=== PATIENT | female | born 1990 | race Caucasian/White ===

== ENCOUNTER 2018-08-25 19:18 | Emergency (ER) | payer BC ==
[2018-08-25] MEDS ORDERED: KETOROLAC 30 MG/ML INJ ONE (20:47)
[2018-08-25 20:50] LABS: Urine Blood 2+ (NEG); Urine Glucose NEGATIVE (NEG); Urine Specific Gravity >1.030 (1.005-1.030)
[2018-08-25 20:51] LABS: Urine Protein 1+ (NEG)
[2018-08-25 21:36] LABS: Calcium Oxalate Crystals- Ur FEW (NONE SEEN); Urine Bacteria <20 /HPF (<20); Urine Culture Reflex Order NOT NEEDED; Urine Mucus HEAVY /HPF (NONE SEEN); Urine RBC <5 /HPF (NONE SEEN)
--- NOTE | 2018-08-25 23:29 | EDPHYS ---
Physician Documentation [facility] Name: Dee Giang Age: 28 yrs Sex: Female : 1990 Arrival Date: 08/25/2018 Time: 19:21 Bed 16 Private MD: Phuc Lainez R ED Physician Ever Coronado HPI: 08/25 23:25 This 28 yrs old Female presents to ER via Ambulatory with complaints of Back gs Pain. 23:25 The patient presents with pain that is acute. The symptoms are located in the thoracic gs area and lumbar area. Onset: The symptoms/episode began/occurred today. arms and legs. Associated signs and symptoms: Pertinent positives: tingling, Pertinent negatives: abdominal pain, chest pain, constipation, headache, incontinence, weakness. Severity of symptoms: At their worst the symptoms were moderate, in the emergency department the symptoms are unchanged. The patient has experienced similar episodes in the past, a few times. 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 - Social history:: Smoking status: Patient/guardian denies using tobacco, Patient uses alcohol, occasionally. Patient/guardian denies using street drugs. - Ebola Screening: : No symptoms or risks identified at this time. ROS: 23:25 All other systems are negative. gs Exam: 23:25 Head/Face: Normocephalic, atraumatic. Eyes: Pupils equal round and reactive to light, gs extra-ocular motions intact. Lids and lashes normal. Conjunctiva and sclera are non-icteric and not injected. Cornea within normal limits. Periorbital areas with no swelling, redness, or edema. ENT: Nares patent. No nasal discharge, no septal abnormalities noted. Tympanic membranes are normal and external auditory canals are clear. Oropharynx with no redness, swelling, or masses, exudates, or evidence of obstruction, uvula midline. Mucous membranes moist. Neck: Trachea midline, no thyromegaly or masses palpated, and no cervical lymphadenopathy. Supple, full range of motion without nuchal rigidity, or vertebral point tenderness. No Meningismus. Chest/axilla: Normal chest wall appearance and motion. Nontender with no deformity. No lesions are appreciated. Cardiovascular: Regular rate and rhythm with a normal S1 and S2. No gallops, murmurs, or rubs. Normal PMI, no JVD. No pulse deficits. Respiratory: Lungs have equal breath sounds bilaterally, clear to auscultation and percussion. No rales, rhonchi or wheezes noted. No increased work of breathing, no retractions or nasal flaring. Abdomen/GI: Soft, non-tender, with normal bowel sounds. No distension or tympany. No guarding or rebound. No evidence of tenderness throughout. Back: No spinal tenderness. No costovertebral tenderness. Full range of motion. Skin: Warm, dry with normal turgor. Normal color with no rashes, no lesions, and no evidence of cellulitis. MS/ Extremity: Pulses equal, no cyanosis. Neurovascular intact. Full, normal range of motion. 23:25 Constitutional: The patient appears in no acute distress, alert, awake. 23:25 Neuro: Cranial nerves: grossly normal, Cerebellar function: is grossly normal, Motor: moves all fours, strength is normal, Sensation: pin prick testing is normal, Deep tendon reflexes are normal. Vital Signs: 19:44 BP 130 / 86; Pulse 90; Resp 20 S; Temp 98.2(O); Pulse Ox 100% on R/A; Weight 118.84 kg bb (R); Height 5 ft. 11 in. (180.34 cm) (R); Pain 8/10; 20:45 BP 107 / 85; Pulse 87; Resp 16; Pulse Ox 100% on R/A; jb4 22:02 BP 116 / 74; Pulse 67; Resp 16; Pulse Ox 97% on R/A; Pain 2/10; jb4 22:52 BP 124 / 65; Pulse 70; Resp 16; Pulse Ox 99% on R/A; jb4 23:43 BP 119 / 78; Pulse 65; Resp 16; Pulse Ox 100% on R/A; jb4 19:44 Body Mass Index 36.54 (118.84 kg, 180.34 cm) MDM: 20:19 Patient medically screened. gs 23:25 Differential diagnosis: sprain, repetitive use, kidney stone (ca ox and blood on dip). Data reviewed: vital signs, nurses notes. Counseling: I had a detailed discussion with the patient and/or guardian regarding: the historical points, exam findings, and any diagnostic results supporting the discharge/admit diagnosis, lab results, radiology results, the need for outpatient follow up. Response to treatment: the patient's symptoms have markedly improved after treatment, and as a result, I will discharge patient. 08/25 20:20 Order name: Urine Microscopic Only; Complete Time: 21:45 08/25 20:46 Order name: Urine Dipstick--Ancillary (enter results); Complete Time: 21:45 em 08/25 20:46 Order name: Urine --Ancillary (enter results); Complete Time: 21:45 [facility] 08/25 21:45 Order name: CT Stone Protocol 08/25 20:20 Order name: Urine Test (obtain specimen); Complete Time: 20:36 08/25 20:20 Order name: Urine Dipstick-Ancillary (obtain specimen); Complete Time: 20:36 Administered Medications: 20:42 Drug: TORadol 30 mg Route: IM; Site: left deltoid; la1 23:40 Follow up: Response: No adverse reaction; Pain is decreased jb4 23:40 Drug: [place] 5 mg-325 mg 1 tabs Route: PO; jb4 23:40 Follow up: Response: No adverse reaction; Pain is decreased jb4 Disposition: 08/25/18 23:28 Discharged to Home. Impression: Low back pain, Dorsalgia. - Condition is Stable. - Discharge Instructions: Back Pain, Adult. - Prescriptions for Prednisone 20 mg Oral Tablet - take 1 tablet by ORAL route once daily for 5 days; 5 tablet. Tylenol- Codeine #4 300-60 mg Oral Tablet - take 1 tablet by ORAL route every 6 hours As needed; 12 tablet. - Work release form, Medication Reconciliation Form, Thank You Letter, Antibiotic Education, Prescription Opioid Use form. - Follow up: Private Physician; When: 2 - 3 days; Reason: Re-evaluation by your physician. Signatures: Dispatcher [facility] EDElizabeth Cobian RN RN bb Dwayne May RN RN la1 Quentin Mcnair RN RN jb4 Ever Coronado MD MD gs Corrections: (The following items were deleted from the chart) 23:45 23:28 08/25/2018 23:28 Discharged to Home. Impression: Low back pain; Dorsalgia. jb4 Condition is Stable. Forms are Medication Reconciliation Form, Thank You Letter, Antibiotic Education, Prescription Opioid Use. Follow up: Private Physician; When: 2 - 3 days; Reason: Re-evaluation by your physician. gs
--- NOTE | 2018-08-25 23:29 | ER ---
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 Transition of care: patient was not received from another setting of care. Onset of symptoms was August 25, 2018. Risk Assessment: Do you want to hurt yourself or someone else? Patient reports no desire to harm self or others. Initial Sepsis Screen: Does the patient meet any 2 criteria? No. Patient's initial sepsis screen is negative. Does the patient have a suspected source of infection? No. Patient's initial sepsis screen is negative. Care prior to arrival: None. 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 - Social history:: Smoking status: Patient/guardian denies using tobacco, Patient uses alcohol, occasionally. Patient/guardian denies using street drugs. - Ebola Screening: : No symptoms or risks identified at this time. Screenin:52 Abuse screen: Denies threats or abuse. Nutritional screening: No deficits noted. jb4 Tuberculosis screening: No symptoms or risk factors identified. Fall Risk None identified. Assessment: 19:52 General: Appears in no apparent distress. uncomfortable, Behavior is calm, cooperative, jb4 appropriate for age. Pain: Complains of pain in lumbar area Pain radiates to low back area, mid back area, right arm, left arm, right leg and left leg Pain currently is 10 out of 10 on a pain scale. Quality of pain is described as burning, stabbing, Pain began Earlier Today. Is continuous. Neuro: Level of Consciousness is awake, alert, obeys commands, Oriented to person, place, time, situation, Office Assistant Receptionist are equal bilaterally Moves all extremities. Full function. Cardiovascular: Patient's skin is warm and dry. Respiratory: Airway is patent Respiratory effort is even, unlabored, Respiratory pattern is regular, symmetrical. GI: No signs and/or symptoms were reported involving the gastrointestinal system. : No signs and/or symptoms were reported regarding the genitourinary system. EENT: No signs and/or symptoms were reported regarding the EENT system. Derm: Skin is intact, Skin is pink, warm \T\ dry. Musculoskeletal: Circulation, motion, and sensation intact. Reports tingling in both arms upon exertion. 21:45 Reassessment: Patient appears in no apparent distress at this time. Patient and/or jb4 family updated on plan of care and expected duration. Pain level reassessed. Patient is alert, oriented x 3, equal unlabored respirations, skin warm/dry/pink. Patient states feeling better. 22:52 Reassessment: Patient appears in no apparent distress at this time. Patient and/or jb4 family updated on plan of care and expected duration. Pain level reassessed. Patient is alert, oriented x 3, equal unlabored respirations, skin warm/dry/pink. Patient states feeling better. 23:43 Reassessment: Patient appears in no apparent distress at this time. Patient and/or jb4 family updated on plan of care and expected duration. Pain level reassessed. Patient is alert, oriented x 3, equal unlabored respirations, skin warm/dry/pink. Discussed D/c, F/u with pt, denies questions or concerns. Vital Signs: 19:44 BP 130 / 86; Pulse 90; Resp 20 S; Temp 98.2(O); Pulse Ox 100% on R/A; Weight 118.84 kg bb (R); Height 5 ft. 11 in. (180.34 cm) (R); Pain 8/10; 20:45 BP 107 / 85; Pulse 87; Resp 16; Pulse Ox 100% on R/A; jb4 22:02 BP 116 / 74; Pulse 67; Resp 16; Pulse Ox 97% on R/A; Pain 2/10; jb4 22:52 BP 124 / 65; Pulse 70; Resp 16; Pulse Ox 99% on R/A; jb4 23:43 BP 119 / 78; Pulse 65; Resp 16; Pulse Ox 100% on R/A; jb4 19:44 Body Mass Index 36.54 (118.84 kg, 180.34 cm) ED Course: 19:21 Patient arrived in ED. es 19:22 Phuc Lainez MD is Private Physician. es 19:44 Triage completed. bb 19:44 Arm band placed on Patient placed in an exam room, on a stretcher, on pulse oximetry. bb Family accompanied patient. 19:52 Quentin Mcnair, RN is Primary Nurse. jb4 19:52 Patient has correct armband on for positive identification. Bed in low position. Call jb4 light in reach. Side rails up X 1. Pulse ox on. NIBP on. 20:00 Ever Coronado MD is Attending Physician. 22:[address] via wheelchair. de 22:04 CT Stone Protocol In Process Unspecified. EDID 23:43 No provider procedures requiring assistance completed. Patient did not have IV access jb4 during this emergency room visit. Administered Medications: 20:42 Drug: TORadol 30 mg Route: IM; Site: left deltoid; la1 23:40 Follow up: Response: No adverse reaction; Pain is decreased jb4 23:40 Drug: [place] 5 mg-325 mg 1 tabs Route: PO; jb4 23:40 Follow up: Response: No adverse reaction; Pain is decreased jb4 Outcome: 23:28 Discharge ordered by . 23:43 Discharged to home ambulatory. jb4 23:43 Condition: stable 23:43 Discharge instructions given to patient, Instructed on discharge instructions, follow up and referral plans. medication usage, Demonstrated understanding of instructions, follow-up care, medications, Prescriptions given X 2. 23:45 Patient left the ED. jb4 Signatures: Dispatcher [employer] EDMS Sherly Tapia Brenda, RN RN bb Attema, Lee, RN RN la1 Quentin Mcnair, JESSY RN jb4 Wilson Diaz Gregory, MD MD
[2018-08-25] MEDS ORDERED: HYDROCODONE/APAP 5/325 MG TAB ONE (23:47)
--- NOTE | 2018-08-26 07:37 | RAD REPORT ---
EXAM DESCRIPTION: CT - Stone Protocol - 08/26/2018 5:51 am CLINICAL HISTORY: Abdominal pain. Lower abdominal pain. Urinary frequency COMPARISON: None. TECHNIQUE: Computed axial tomography of the abdomen pelvis was obtained without oral or IV contrast. Lack of IV and oral contrast limits evaluation of solid organs, bowel, and vessels. Coronal reformat tegan images were obtained and reviewed. Preliminary report generated by virtual radiologic and review ed prior to dictation All CT scans are performed using dose optimization technique as appropriate and may include automated exposure control or mA/KV adjustment according to patient size. FINDINGS: A 7 millimeter right lower lobe pulmonary nodule Tiny bilateral renal calculi without hydronephrosis. An ureteral calculus is not noted. A bladder weston culus is not present. The liver, pancreas and adrenals appear grossly normal. The spleen contains 2 low-density lesions. L argest measures 18 millimeters. There is no evidence of diverticulitis. The appendix appears normal. Small umbilical hernia IMPRESSION: Tiny bilateral nonobstructing renal calculi 7 millimeter right lower lobe pulmonary nodule. Per Fleischner guidelines followup CT in 6-12 months recommended Nonspecific splenic lesions. Follow-up ultrasound in 3 months recommended
[2018-08-26 10:21] VITALS: TEMP 98.2
[2018-08-26 10:26] VITALS: BP 119/78; O2SAT 100
== END 2018-08-25 23:45 | disposition home or self-care (01) ==
LOC: ER 19:18
DX: M54.9 Dorsalgia, unspecified (principal); Z88.2 Allergy status to sulfonamides; Z91.040 Latex allergy status; Z91.048 Other nonmedicinal substance allergy status
CPT/HCPCS: 74176; 76377; 81003; 81015; 81025; 96372; 99284

== ENCOUNTER 2018-08-27 15:30 | Observation (INO) | payer BC ==
--- OUTSIDE RECORDS SUMMARY | 2018-08-27 15:53 | XMS REPORT ---
:1990 [facility] Address [address] [place] [address] Dr. Coronado. [address] [place] [address] Care Team Providers Name Role Phone Unavailable Unavailable Unavailable Problems This patient has no known problems. Allergies, Adverse Reactions, Alerts This patient has no known allergies or adverse reactions. Medications This patient has no known medications.
[2018-08-27 16:19] VITALS: BMI 36.5
[2018-08-27 16:57] LABS: Urine Appearance CLEAR; Urine Bilirubin NEGATIVE (NEG); Urine Blood 2+ (NEG); Urine Color YELLOW; Urine Glucose NEGATIVE (NEG); Urine Protein NEGATIVE (NEG); Urine Specific Gravity 1.025 (1.005-1.030); Urine Urobilinogen 0.2 mg/dL (0.2-1.0)
[2018-08-27 17:00] LABS: Urine Microscopic Reflex ORDER UMIC
[2018-08-27 17:02] LABS: Urine Bacteria <20 /HPF (<20)
[2018-08-27 17:03] LABS: Urine Culture Reflex Order NOT NEEDED; Urine Mucus SLIGHT /HPF (NONE SEEN)
--- NOTE | 2018-08-27 18:03 | RAD REPORT ---
EXAM DESCRIPTION: MRI - C Spine Wo Cont - 08/27/2018 5:39 pm CLINICAL HISTORY: Bilateral arm numbness COMPARISON: None TECHNIQUE: Magnetic resonance imaging of the cervical spine was obtained with coronal and sagittal r econstruction FINDINGS: C2-3, C3-4, C4-5, C5-6, C6-7 C7-T1 are unremarkable A disc bulge/herniation not seen. Central spinal stenosis is not noted. Neural foramina are patent Minimal signal scattered throughout the spinal cord likely represents artifact rather than pathology. Spinal cord is normal caliber. No abnormal signal within the bones is noted. IMPRESSION: Unremarkable exam
[2018-08-27] MEDS: MORPHINE 4 MG/ML SYR IV PRN ×2 (18:11→23:55)
[2018-08-27 22:40] LABS: RPR Titer ND
[2018-08-27 22:53] LABS: Absolute Lymphocytes (CBC) 1.6 K/uL (0.7-4.9); Absolute Monocytes 0.6 K/uL (0.1-1.3); Absolute Neutrophil 7.4 K/uL (1.8-8.0); Basophils % 0.3 % (0-1.3); Eosinophils % 0.1 % (0-4.4); Lymphocytes % 16.9 % (15.3-44.8); MCH 28.4 pg (27.0-35.0); MCV 83.4 fL (80-100); MPV 9.6 fL (7.6-11.3)
[2018-08-28 02:10] LABS: RPR (Rapid Plasma Reagin) NON-REACT (NON-REACT)
--- NOTE | 2018-08-28 02:16 | CON ---
Reason For Consultation: Paresthesias, possible myelitis. History: This is a 28-year-old lady who was in her usual state of health until earlier on Friday n she started noticing neck discomfort, thoracic and axial pain, and paresthesias in the bilateral up per extremities. She became concerned. She came to the Emergency Department on the . Evaluatio n there was largely unrevealing. She was told to follow up with her primary care physician. She had a CT scan demonstrating a 7-mm pulmonary lesion and nonobstructing renal calculi. It is our primary care physician who recommended she seek the advice of a neurologist, but I was not available [facility], so she went to [place] where she had plain films and labs seen, treated and released, symptom persisted, came back to her primary care physician today, who admitted her to the hospital, and neuro logic consultation was requested. She had a cervical spine MRI noncontrast performed today demonstra ting no structural bony or disk abnormality. There is questionable slight signal change in the cord, although it is likely artifactual personal review, reveals that it may be technical issue. The cere bellar tonsils, however, do appear to be somewhat low lying. Sedimentation rate is normal at 13. AN A is pending. Consultation was requested. Past Medical History: None. Allergies: LATEX, SULFA. Social History: Smokes. Employed. Normally independent activities of daily living. Family History: Noncontributory. Review of Systems: General: Good health. Has not been ill. Eyes: No visual symptoms. Ears, Nose, Throat: No dysarthria. No dysphagia. Cardiovascular: Negative. Pulmonary: Pulmonary nodule. GI: Negative. : Negative. Musculoskeletal: Arthralgias. Neurologic: As noted. Psychiatric: Negative. Endocrine: Negative. Hematologic: Negative. Physical Examination: Vital Signs: 98.1, 72, 16, 112/58. General: Pleasant lady, lying in bed. She appears slightly uncomfortable, but in no distress. Awak e, alert, oriented to time, person, place, and situation. Neck: Supple. Heart: Sinus rhythm. Lungs: Clear. Abdomen: Soft. Bowel sounds present. HEENT: Pupils reactive. Ocular motion full without nystagmus. No down beating nystagmus. Alejandro f ull. Fundi are sharp. No optic pallor. Facial strength and sensation normal. Tongue protrudes johann nly. Soft palate elevates symmetrically bilaterally. Extremities: Strength is full. She has spotty pinprick and temperature loss in the bilateral upper extremities. Tinel's is absent. Spurling's is absent. Lhermitte's is absent. Reflexes 1/4 in the arms, 2/4 in the legs. Toes are downgoing. Esquivel's negative. Cerebellar exam demonstrates no angelito analy. Gait is normal. Pertinent Laboratory Data: MRI cervical spine is noted. UA: 2+ blood, 10-20 red cells, 5-10 squamo us cells. Impression: Paresthesias. Discussion, the patient is not weak. She does not have clear-cut upper m otor neuron signs on physical exam. The questionable cord abnormality should be investigated in more detail. Plan: We will do a brain MRI to evaluate for some other disorder like multiple sclerosis as well as to look at the cerebellar tonsils in a little bit more detail. Check B12, thyroid, RPR, and MRI of t horacic spine. Comprehensive metabolic panel and CBC. Repeat the C-spine with contrast. Thank you for the consult. We will continue to follow with you. VINAY Voice ID: [id number] Report ID: [id number]
[2018-08-28] MEDS: MORPHINE 4 MG/ML SYR IV PRN ×3 (05:06→18:51)
[2018-08-28 06:15] LABS: ALT/SGPT 15 U/L (12-78); AST/SGOT 7 U/L (15-37); Albumin 3.2 g/dL (3.4-5.0); Alkaline Phosphatase 53 U/L (45-117); BUN Blood Urea Nitrogen 17 mg/dL (7-18); Bicarbonate 26 mmol/L (21-32); Bilirubin Total 0.2 mg/dL (0.2-1.0); Glucose Level 96 mg/dL (74-106); Potassium 3.9 mmol/L (3.5-5.1); Protein, Total 6.2 g/dL (6.4-8.2); Sodium Level 140 mmol/L (136-145); Thyroid Stimulating Hormone 0.804 uIU/mL (0.360-3.740)
--- NOTE | 2018-08-28 10:30 | RAD REPORT ---
EXAM DESCRIPTION: MRI - C Spine W/Wo Cont - 08/27/2018 10:24 pm CLINICAL HISTORY: Bilateral arm numbness COMPARISON: MRI cervical spine unenhanced August 27, 2018 TECHNIQUE: Axial, sagittal and coronal magnetic resonance imaging of the cervical spine obtained. 2 0 cc MultiHance administered intravenously. FINDINGS: C2-3, C3-4, C4-5, C5-6, C6-7 and C7-T1 appears unremarkable. No abnormal enhancement is displayed. Central/foraminal stenosis is not noted. Spinal cord is normal caliber and signal IMPRESSION: Unremarkable exam
--- NOTE | 2018-08-28 11:08 | RAD REPORT ---
EXAM DESCRIPTION: MRI - Brain Wo Cont - 08/27/2018 10:24 pm CLINICAL HISTORY: Bilateral arm numbness COMPARISON: none TECHNIQUE: Axial, sagittal, and coronal magnetic resonance images of the brain were obtained. Contra st was not requested FINDINGS: No abnormal signal is present within the brain. Diffusion-weighted/ADC mapping does not reveal evidence of acute infarction. The ventricles are normal caliber. An extra-axial fluid collection is not present The sinuses and mastoids are clear. IMPRESSION: Unremarkable unenhanced brain MRI
[2018-08-28 11:13] VITALS: O2SAT 98
--- NOTE | 2018-08-28 11:26 | RAD REPORT ---
EXAM DESCRIPTION: MRI - Thoracic Spine W/Wo Contr - 08/27/2018 10:24 pm CLINICAL HISTORY: Bilateral arm numbness. COMPARISON: None. TECHNIQUE: Axial and sagittal magnetic resonance imaging of the thoracic spine obtained. 20 mL Multi [place] administered intravenously. FINDINGS: No abnormal enhancement is visualized. A significant disc bulge/herniation is not seen. Central spinal stenosis is not present. Neural janeth ludy are patent. The spinal cord is normal in caliber and signal. No abnormal signal within the bones is noted. IMPRESSION: Unremarkable exam.
--- NOTE | 2018-08-28 20:13 | HP ---
Date of Admission: 08/27/2018 Chief Complaint: Paresthesia of both arms, general deterioration of physical status. History Of Present Illness: This patient was seen in the emergency room for those symptoms and she c ursula for followup with continued symptoms. She went to the emergency room second time where she had x -rays and blood work and she was again brought to the office with continued symptoms. In view of sym ptoms, not responding and without any diagnosis the patient was admitted for observation to see [facility] er she has acute myelitis, some acute illness causing her symptoms. There is no history of chest lakes[place] n, fever, chills, rigors. Past Medical History: Essentially negative for any chronic illness. Family History: Noncontributory. Personal History: She is allergic to sulfa and latex. Review of Systems: No chest pain, shortness of breath. Physical Examination: General: Revealed a 28-year-old female, alert. Vital Signs: Normal. HEENT: Negative. Neck: Supple. JVD negative. Chest: Clear. Heart: Regular. Abdomen: Soft. Extremities: No edema. Neurological: Even though she has paresthesia and various symptoms, there is no object to deficit. Assessment: Rule out myelitis. Plan: The patient has been seen by Neurology Service. MRI of the spine has been ordered along with the MRI of the head. The patient will be reassessed. DEEPTI/JOSE Voice ID: [id number]
[2018-08-28] MEDS ORDERED: ONDANSETRON 4 MG/2 ML VIAL IV PRN (20:30)
[2018-08-28 20:37] VITALS: BP 115/55; TEMP 97.8
--- NOTE | 2018-08-29 01:41 | PN ---
Time Seen: 2100. Reason: Paresthesias. Interval History: Studies all are normal. Labs are all normal. TD pending. RPR negative. Thyroi d, B12 normal. LFTs normal. Electrolytes normal. Brain MRI normal. C-spine with contrast normal. T-spine normal. The patient is a little bit less uncomfortable and would not pursue CSF analysis. I think it will be very low yield. She does not really have myelopathic symptoms. Presently, she rajput s very uncomfortable paresthesias. We will bring her back to the office next week for a nerve conduc tion study. She may just have a very atypical presentation of something more common like carpal tunn el. Physical Examination: General: She is awake, alert, oriented. Neurologic: Cranial nerves are unremarkable. Lhermitte's negative. Strength full. Bilateral Tinel 's at the wrists appreciated today, right greater than left. Reflexes symmetric. Toes are downgoing . Impression: Paresthesias, possible carpal tunnel. Plan: I think she is safe to be discharged to home. We will add gabapentin 300 every 12 hours as ne eded. Follow up in the office next week for a nerve conduction study. Thank you for the consult. VINAY Voice ID: [id number] Report ID: [id number]
== END 2018-08-28 23:19 | disposition home or self-care (01) ==
LOC: 2ND 15:48
PROVIDERS: ADMIT Internal Medicine; ATTEND Internal Medicine
DX: R20.2 Paresthesia of skin (principal)
CPT/HCPCS: 36415; 70551; 72141; 72156; 72157; 80053; 81003; 81015; 82607; 84443; 85025; 85652; 86038; 86592; A9577; G0378

== ENCOUNTER 2020-07-22 10:44 | Emergency (ER) | payer SELFPAY ==
--- OUTSIDE RECORDS SUMMARY | 2020-07-22 10:47 | XMS REPORT | Continuity of Care Document ---
:1990 Author Organization [facility] t Address [address] [place] [address] Care Team Providers Name Role Phone Arnaud Dickson Attending Clinician Problems Condition Condition Condition Status Onset Resolution Last Treating Co mments Source Name Details Category Date Date Treatment Clinician Date Carpal Problem Active 2019-05-24 Memor ia tunnel 15:00:41 l syndrome Carpal Иван n (disorder) tunnel syndrome (disorder) Active Problem 05/24/2019 [facility] Low back Problem Active 2019-05-24 Mem oria pain 15:00:41 l (disorder) Low back [place] pain (disorder) Active Problem 05/24/2019 [facility] Neck pain Problem Active 2019-05-24 Me moria (finding) 15:00:41 l Neck [place] pain (finding) Active Problem 05/24/2019 [facility] Allergies, Adverse Reactions, Alerts Allergy Allergy Status Severity Reaction(s) Onset Inactive Treating Comm ents Source Name Type Date Date Clinician sulfa sulfa Active Memoria drugs<hedrick drugs<hedrick l p>1</sup p>1</sup Иван n > > Latex<hedrick Latex<hedrick Active Memori a p>2</sup p>2</sup l > > [place] Social History Social Habit Start Date Stop Date Quantity Comments Source Social History 2018-09-02 2018-09-02 Dinorah wang 17:22:16 17:22:16 Medications Ordered Filled Start Stop Current Ordering Indication Dosage Frequency Signature Comments Components Source Medication Medication Date Date Medication? Clinician (SIG) Name Name gabapentin 2019-0 Yes 600 mg = 1 M emoria 600 MG Oral 1-09 tab, PO, l Tablet 16:46: TID, # 90 Иван n 00 tab, 3 Refill(s), Pharmacy: [facility] baclofen 10 2017-09 Yes 10 mg = 1 M emoria mg oral 2-06 tab, PO, l tablet 01:23: Bedtime, # Coreen nn 00 30 tab, 2 Refill(s), Pharmacy: [facility] [place] gabapentin 2017-09 No 300 mg, Ayan earl 300 MG Oral 2-06 PO, BID, # l Capsule 01:23: 60 cap, 3 Coreen nn 00 Refill(s), Pharmacy: [facility] [place] gabapentin 2017-09 No 300 mg, Ayan earl 2-05 PO, BID, 0 l 17:11: Refill(s) [place] 00 Vital Signs Vital Name Observation Time Observation Value Comments Source BMI Calculated 2018-10-07 16:06:00 Timbo al [place] Height 2018-10-07 16:06:00 180.34 cm [facility] Weight 2018-10-07 16:06:00 [facility] Heart Rate 2018-10-07 16:06:00 [facility] [address] Systolic (mm Hg) 2018-10-07 16:06:00 Ayan rianadir [place] Diastolic (mm Hg) 2018-10-07 16:06:00 [facility] orial [place] Weight 2018-09-02 17:06:00 [facility] BMI Calculated 2018-09-02 17:06:[facility] Height 2018-09-02 17:06:00 180.34 cm [facility] Heart Rate 2018-09-02 [facility] 2018-09-02 17:06:00 Ayan rianadir [place] Procedures Procedure Date / Time Performed Performing Clinician [facility] En[facility] Start End Encounter Admission Attending Care Care Encounter Source Date/Time Date/Time Type Type Clinicians Facility Department ID 2018-11-04 2018-11-04 Outpatient ELVIRA Dickson [id number] 10:15:00 10:15:00 Pravin Arnaud 2018-10-07 2018-10-07 Outpatient ELVIRA DicksonSCHBONNIE [id number] 10:00:00 23:59:59 Pravin Arnaud 2018-09-14 2018-09-15 Outpatient ELVIRA ROBINSCHBONNIE [id number] 14:36:00 23:59:59 00 2018-09-02 2018-09-02 Outpatient Yessi [facility] [id number] 11:15:00 23:59:59 Pravin Lares Results This patient has no known results.
--- OUTSIDE RECORDS SUMMARY | 2020-07-22 10:47 | XMS REPORT | Continuity of Care Document ---
:1990 Author Organization [facility] Care Team Providers Name Role Phone [facility] Unavailable Un available Problems Problem Status Onset Classification Date Comments Sourc e Date Reported Carpal tunnel Active Problem 05/24/2019 Misch er syndrome Neuro (disorder) Low back pain Active Problem 05/24/2019 [facility] (disorder) Neuro Neck pain Active Problem 05/24/2019 [facility] (finding) Neuro Medications Medication Details Route Status Patient Ordering Order Source Instructions Provider Date gabapentin 600 mg = 1 Active 10/07/19 [facility] 600 MG Oral tab, PO, 19 Neuro Tablet TID, # 90 tab, 3 Refill(s), Pharmacy: [facility] [place] baclofen 10 10 mg = 1 Active 09/03/20 [facility] mg oral tab, PO, 18 Neuro tablet Bedtime, # 30 tab, 2 Refill(s), Pharmacy: [facility] [place] gabapentin 300 mg, No Longer 09/03/20 [facility] 300 MG Oral PO, BID, # Active 18 Neuro Capsule 60 cap, 3 Refill(s), Pharmacy: [facility] [place] gabapentin 300 mg, Inactive 09/02/20 [facility] PO, BID, 0 18 Neuro Refill(s) Allergies, Adverse Reactions, Alerts Substance Category Reaction Severity Reaction Status Date Comments S ource type Reported sulfa Assertion Drug Active Hives. Mische r drugs<sup>1 allergy Neur o </sup> Latex<sup>2 Assertion Drug Active itch Mi precious </sup> allergy Neuro Immunizations No Data Provided for This Section Results No Data Provided for This Section Pathology Reports No Data Provided for This Section Diagnostic Reports No Data Provided for This Section Consultation Notes No Data Provided for This Section Discharge Summaries No Data Provided for This Section History and Physicals No Data Provided for This Section Vital Signs Vital Sign Value Date Comments Source BMI Calculated 36.34 10/07/2018 [facility] Height 180.34 cm 10/07/2018 [facility] Weight 118.182 10/07/2018 [facility] Heart Rate 79 10/07/2018 [facility] Systolic (mm Hg) 95 10/07/2018 [facility] [place] ro Diastolic (mm Hg) 73 10/07/2018 [facility] Ne uro Weight 114.545 09/02/2018 [facility] Neuro BMI Calculated 35.22 09/02/2018 [facility] Neuro Height 180.34 cm 09/02/2018 [facility] Neuro Heart Rate 101 09/02/2018 [facility] Neuro Systolic (mm Hg) 105 09/02/2018 [facility] [place] ro Encounters Location Location Encounter Encounter Reason Attending ADM DC Stat us Source Details Type Number For Provider Date Date Visit Outpatient [id number] FARAZ 09/02 [facility] MNA Outpatient [id number] Far[place] 09/02 09/03 [facility] Neurology [facility] /2017 [facility] [place] [facility]NA Outside [id number] 09/14 09/16 [facility] Neurology Medical /2017 Neuro [place] Records Outpatient [id number] FARAZ 10/07 Active [facility] MNA Outpatient [id number] [place] 10/07 10/08 [facility] Neurology [facility] /2018 Neuro [place] Outpatient [id number] FARAZ 11/04 [facility] MNA Ambulatory [id number] [place] 11/04 11/04 [facility] Neurology Pre-Reg [facility] Neuro [place] Procedures Procedure Code Date Perfomer Comments Source section [id number] [facility] Neuro Assessment and Plan No Data Provided for This Section Plan of Care No Data Provided for This Section Social History Social History Date Source Social History TypeResponse 09/02/2018 [facility] Neur o Alcohol Current1 Smoking Status Current every day smoker; Type: Cigarett es; Exposure to Tobacco Smoke Unable to obtain; Cigarette Smoking Last 365 Days Yes; Reg Smoking Cessation Counseling No2 entered on: 10/07/18 1Drink about twice a month.2A pack a day for about 10 yrs. Family History No Data Provided for This Section Advance Directives No Data Provided for This Section Functional Status No Data Provided for This Section
--- NOTE | 2020-07-22 11:13 | EDPHYS ---
Physician Documentation [facility] Name: Dee Giang Age: 30 yrs Sex: Female : 1990 Arrival Date: 07/22/2020 Time: 10:49 Bed 7 Private MD: Phuc Lainez R ED Physician Nitesh Hernández HPI: 07/22 11:10 This 30 yrs old Female presents to ER via Ambulatory with complaints of Jaw rn Pain. 11:10 The patient presents with pain, swelling. Onset: The symptoms/episode began/occurred 2 rn week(s) ago. Modifying factors: The symptoms are alleviated by nothing, the symptoms are aggravated by nothing. Severity of symptoms: At their worst the symptoms were mild, in the emergency department the symptoms are unchanged. The patient has experienced similar episodes in the past. Reports seen twice recently by dentist, in currently on clindamycin 150mg for dental infection, they recommended tooth extraction a few days ago, didn't want it, now comes in because right cheek is starting to swell since last night. No fever. No difficulty swallowing. . Historical: - Allergies: 11:04 Latex, Natural Rubber; ss 11:04 Sulfa (Sulfonamide Antibiotics); ss - Home Meds: 11:04 Clindamycin Oral [Active]; ss - PSHx: 11:04 ; Tubal ligation; ss - Immunization history:: Adult Immunizations up to date. - Social history:: Smoking status: Patient denies any tobacco usage or history of. - Family history:: not pertinent. - Hospitalizations: : No recent hospitalization is reported. ROS: 11:10 Constitutional: Negative for fever, chills, and weight loss, ENT: + dental pain and now rn right cheek swelling and pain Neck: Negative for injury, pain, and swelling. Exam: 11:10 Constitutional: This is a well developed, well nourished patient who is awake, alert, rn and in no acute distress. Head/Face: Normocephalic ENT: Poor dentition, no evidence of intraoral abscess, + soft, non-fluctuant swelling and induration of right buccal space, no crepitus Vital Signs: 11:01 BP 125 / 87; Pulse 83; Resp 16; Temp 98.7(TE); Pulse Ox 100% on R/A; Weight 112.49 kg; ss Height 6 ft. 0 in. (182.88 cm); Pain 8/10; 11:33 BP 118 / 61; Pulse 86; Resp 17; Pulse Ox 100% ; rb1 11:01 Body Mass Index 33.63 (112.49 kg, 182.88 cm) ss MDM: 10:53 Patient medically screened. rn 11:10 Differential diagnosis: dental caries, dental abscess, buccal space cellulitis. Data rn reviewed: vital signs, nurses notes, and as a result, I will discharge patient. Counseling: I had a detailed discussion with the patient and/or guardian regarding: the historical points, exam findings, and any diagnostic results supporting the discharge/admit diagnosis, the need for outpatient follow up, to return to the emergency department if symptoms worsen or persist or if there are any questions or concerns that arise at home. Special discussion: I discussed with the patient/guardian in detail that at this point there is no indication for admission to the hospital. It is understood, however, that if the symptoms persist or worsen the patient needs to return immediately for re-evaluation. Based on the history and exam findings, there is no indication for further emergent testing or inpatient evaluation. I discussed with the patient/guardian the need to see a dentist for further evaluation of the symptoms. ED course: Has f/u on Friday for tooth extraction.. Administered Medications: 11:30 Drug: TORadol - Ketorolac 15 mg Route: IM; Site: right deltoid; rb1 11:45 Follow up: Response: No adverse reaction rb1 11:30 Drug: Rocephin (cefTRIAXone) 1 grams Route: IM; Site: right gluteus; rb1 11:45 Follow up: Response: No adverse reaction rb1 Disposition: 07/22/20 11:13 Discharged to Home. Impression: Buccal cellulitis. - Condition is Stable. - Discharge Instructions: Cellulitis, Adult, Dental Abscess, Dental Caries, Adult. - Prescriptions for Augmentin 875- 125 mg Oral Tablet - take 1 tablet by ORAL route every 12 hours for 10 days; 20 tablet. Clindamycin HCl 300 mg Oral Capsule - take 1 capsule by ORAL route every 6 hours for 10 days; 40 capsule. - Medication Reconciliation Form, Thank You Letter, Antibiotic Education, Prescription Opioid Use form. - Follow up: Private Physician; When: As needed; Reason: Recheck today's complaints, Re-evaluation by your physician. - Problem is an ongoing problem. - Symptoms have improved. Signatures: Nitesh Hernández MD MD rn Smirch, Shelby, RN RN Dorene Watts RN RN rb1 Corrections: (The following items were deleted from the chart) 11:58 11:13 07/22/2020 11:13 Discharged to Home. Impression: Buccal cellulitis. Condition is ss Stable. Forms are Medication Reconciliation Form, Thank You Letter, Antibiotic Education, Prescription Opioid Use. Follow up: Private Physician; When: As needed; Reason: Recheck today's complaints, Re-evaluation by your physician. Problem is an ongoing problem. Symptoms have improved. rn
--- NOTE | 2020-07-22 11:13 | ER ---
Nurse's Notes [facility] Name: Dee Giang Age: 30 yrs Sex: Female : 1990 Arrival Date: 07/22/2020 Time: 10:49 Bed 7 Private MD: Phuc Lainez R Diagnosis: Buccal cellulitis Presentation: 07/22 11:01 Chief complaint: Patient states: dental pain x 5 days. Pt reports she woke up this ss morning with swelling to R side of jaw. Pt has been on Clindamycin since Friday and refused to have her tooth pulled as the dentist recommended because she wanted to wait for the infection to go away prior to the procedure. Coronavirus screen: Client denies travel out of the [place] in the last 14 days. Ebola Screen: Patient denies exposure to infectious person. Patient denies travel to an Ebola-affected area in the 21 days before illness onset. Initial Sepsis Screen: Does the patient meet any 2 criteria? No. Patient's initial sepsis screen is negative. Does the patient have a suspected source of infection? Yes: Other: dental abscess. Risk Assessment: Do you want to hurt yourself or someone else? Patient reports no desire to harm self or others. Onset of symptoms was July 17, 2020. 11:01 Method Of Arrival: Ambulatory ss 11:01 Acuity: JOSEFINA 4 ss Historical: - Allergies: 11:04 Latex, Natural Rubber; ss 11:04 Sulfa (Sulfonamide Antibiotics); ss - Home Meds: 11:04 Clindamycin Oral [Active]; ss - PSHx: 11:04 ; Tubal ligation; ss - Immunization history:: Adult Immunizations up to date. - Social history:: Smoking status: Patient denies any tobacco usage or history of. - Family history:: not pertinent. - Hospitalizations: : No recent hospitalization is reported. Screenin:00 Abuse screen: Denies threats or abuse. Nutritional screening: No deficits noted. rb1 Tuberculosis screening: No symptoms or risk factors identified. Fall Risk None identified. Assessment: 11:00 General: Appears uncomfortable, Behavior is calm, cooperative. Pain: Complains of pain rb1 in right lower jaw. Neuro: Level of Consciousness is awake, alert, obeys commands, Oriented to person, place, time, situation. Cardiovascular: Patient's skin is warm and dry. Respiratory: Airway is patent Respiratory effort is even, unlabored, Respiratory pattern is regular, symmetrical. Musculoskeletal: Swelling present in right lower jaw. 11:30 Reassessment: Discharge pending due to shot time. rb1 11:45 Reassessment: Patient appears in no apparent distress at this time. Patient and/or rb1 family updated on plan of care and expected duration. Pain level reassessed. Patient is alert, oriented x 3, equal unlabored respirations, skin warm/dry/pink. Vital Signs: 11:01 BP 125 / 87; Pulse 83; Resp 16; Temp 98.7(TE); Pulse Ox 100% on R/A; Weight 112.49 kg; ss Height 6 ft. 0 in. (182.88 cm); Pain 8/10; 11:33 BP 118 / 61; Pulse 86; Resp 17; Pulse Ox 100% ; rb1 11:01 Body Mass Index 33.63 (112.49 kg, 182.88 cm) ED Course: 10:49 Patient arrived in ED. mr 10:49 Phuc Lainez MD is Private Physician. mr 10:53 Nitesh Hernández MD is Attending Physician. rn 11:00 Patient has correct armband on for positive identification. Bed in low position. Call rb1 light in reach. Side rails up X 1. Pulse ox on. NIBP on. 11:03 Dorene Harper, RN is Primary Nurse. rb1 11:04 Triage completed. ss 11:04 Arm band placed on right wrist. ss 11:48 No provider procedures requiring assistance completed. Patient did not have IV access rb1 during this emergency room visit. Administered Medications: 11:30 Drug: TORadol - Ketorolac 15 mg Route: IM; Site: right deltoid; rb1 11:45 Follow up: Response: No adverse reaction rb1 11:30 Drug: Rocephin (cefTRIAXone) 1 grams Route: IM; Site: right gluteus; rb1 11:45 Follow up: Response: No adverse reaction rb1 Outcome: 11:13 Discharge ordered by . rn 11:48 Patient left the ED. rb1 11:48 Discharged to home ambulatory. rb1 11:48 Condition: stable 11:48 Discharge instructions given to patient, Instructed on discharge instructions, follow up and referral plans. medication usage, Demonstrated understanding of instructions, follow-up care, medications, Prescriptions given X 2. Signatures: Morton, Manisha HernándezNitesh MD MD rn Smirch, Shelby, RN RN Dorene Harper RN RN rb1 Corrections: (The following items were deleted from the chart) 16:56 11:58 Patient left the ED. rb1
[2020-07-22] MEDS ORDERED: KETOROLAC 30 MG/ML INJ ONE (11:35)
[2020-07-22] MEDS ORDERED: CEFTRIAXONE 1000 MG/VIAL ONE (11:35)
[2020-07-22 12:03] VITALS: TEMP 98.7; O2SAT 100
[2020-07-22 12:04] VITALS: BP 118/61
== END 2020-07-22 11:58 | disposition home or self-care (01) ==
LOC: ER 10:44
DX: K12.2 Cellulitis and abscess of mouth (principal); Z88.2 Allergy status to sulfonamides; Z91.040 Latex allergy status
CPT/HCPCS: 96372; 99283